=== PATIENT | female | born 1960 | race Caucasian/White ===

== ENCOUNTER 2020-11-26 23:49 | Inpatient (IN) ==
[2020-11-27] MEDS ORDERED: Famotidine IV 10 MG/ML 2 ml VIAL (20 mg) IV SLOW PU ONE (00:57)
[2020-11-27 01:49] LABS: ABS Basophils 0.1 10^3/ul (0-0.2); ABS Eosinophils 0.3 10^3/ul (0-0.6); ABS Lymphocytes 1.4 10^3/ul (1.0-4.8); ABS Monocytes 0.5 10^3/ul (0-0.8); ABS Neutrophils 4.4 10^3/ul (1.5-7.7); Eosinophil % 4.2 %; Hematocrit 32 % (35-47); Hemoglobin 10.5 g/dL (12.0-16.0); Mean Corpuscular HGB Conc 33 g/dL (31-36); Mean Corpuscular Hemoglobin 27 pg (27-31); Mean Corpuscular Volume 80 fL (80-97); Mean Platelet Volume 6.4 fL (7.4-10.4); Platelet Count 323 10^3/uL (150-450); Red Blood Count 3.95 10^6 /uL (3.70-4.87); Red Cell Distribution Width 16 % (10-15); White Blood Count 6.7 10^3/uL (3.5-10.8)
[2020-11-27 01:52] LABS: Activated Partial Thrombo Time 31.2 seconds (26.0-38.0); INR 0.99 (0.82-1.09)
[2020-11-27 02:02] LABS: ALT 11 U/L (7-52); AST 11 U/L (13-39); Albumin 3.6 g/dL (3.2-5.2); Albumin/Globulin Ratio 1.4 (1-3); Alkaline Phosphatase 92 U/L (34-104); Anion Gap 5 mmol/L (2-11); Blood Urea Nitrogen 25 mg/dL (6-24); CO2 Carbon Dioxide 26 mmol/L (22-32); Calcium 8.7 mg/dL (8.6-10.3); Chloride 104 mmol/L (101-111); EGFR African American 132.7 (>60); EGFR Non-African American 109.7 (>60); Globulin 2.6 g/dL (2-4); Glucose 105 mg/dL (70-100); Potassium 3.9 mmol/L (3.5-5.0); Sodium 135 mmol/L (135-145); Total Protein 6.2 g/dL (6.4-8.9)
[2020-11-27 02:14] LABS: Troponin I 0.03 ng/mL (<0.03)
[2020-11-27 03:41] LABS: Vitamin D Total 25(OH) 14.6 ng/mL (20-50)
[2020-11-27 05:50] LABS: Hematocrit 34 % (35-47); Hemoglobin 11.2 g/dL (12.0-16.0); Mean Corpuscular HGB Conc 33 g/dL (31-36); Mean Corpuscular Hemoglobin 27 pg (27-31); Mean Corpuscular Volume 80 fL (80-97); Mean Platelet Volume 6.3 fL (7.4-10.4); Platelet Count 330 10^3/uL (150-450); Red Blood Count 4.21 10^6 /uL (3.70-4.87); Red Cell Distribution Width 16 % (10-15); White Blood Count 6.9 10^3/uL (3.5-10.8)
[2020-11-27] MEDS ORDERED: Enoxaparin 40 MG/0.4 ML SYR SUBCUT SCH (06:00)
[2020-11-27 06:13] LABS: Troponin I 0.03 ng/mL (<0.03)
[2020-11-27 06:28] LABS: Total Iron Binding Capacity 309 mcg/dL (250-450); Transferrin 221 mg/dL (203-362)
[2020-11-27 06:34] LABS: % Iron Saturation 6 % (15-55); Iron < 20 ug/dL (50-212); Unsaturated Iron Binding < 294 ug/dL
[2020-11-27 06:48] LABS: Ferritin 23.6 ng/mL (11-307)
[2020-11-27 06:53] LABS: Vitamin B12 572 pg/mL (180-914)
[2020-11-27] MEDS: Cholecalciferol (VIT D3) 1,000 unit TAB PO SCH (07:41)
[2020-11-27] MEDS ORDERED: fentaNYL 100 mcg/2 ml 50 MCG/ML VIAL ONE (12:59)
[2020-11-27] MEDS ORDERED: Lidocaine 2% PF 5 ML VIAL ONE (12:59)
[2020-11-27] MEDS ORDERED: Midazolam 2 mg/2 ml VIAL 1 mg/ml 2 ml VIAL (2 mg) ONE (12:59)
[2020-11-27] MEDS ORDERED: Propofol 10 MG/ML 20 ML BTL ONE ×2 (12:59→13:25)
[2020-11-27] MEDS ORDERED: Clindamycin 900 MG/D5W BAG 900 MG/50 ML BAG IVPB ONE (16:11)
[2020-11-27] MEDS ORDERED: fentaNYL 100 mcg/2 ml 50 MCG/ML VIAL IV PRN (18:17)
[2020-11-27] MEDS ORDERED: diPHENhydraMINE IV 50 MG/ML 1 ml VIAL (BENADRYL) IV PRN (18:17)
[2020-11-27] MEDS ORDERED: Ondansetron ODT 4 mg TAB 4 MG TAB PO PRN (18:17)
[2020-11-27] MEDS ORDERED: Naloxone 0.4 mg VIAL 0.4 mg/ml 1 ml VIAL IV PRN (18:17)
[2020-11-28] MEDS: Clindamycin 600 MG/D5W BAG IV SCH ×3 (00:21→17:04)
[2020-11-28 05:39] LABS: ABS Basophils 0.1 10^3/ul (0-0.2); ABS Eosinophils 0.3 10^3/ul (0-0.6); ABS Lymphocytes 1.4 10^3/ul (1.0-4.8); ABS Monocytes 0.6 10^3/ul (0-0.8); ABS Neutrophils 4.4 10^3/ul (1.5-7.7); Eosinophil % 4.2 %; Hematocrit 32 % (35-47); Hemoglobin 10.7 g/dL (12.0-16.0); Lymphocyte % 20.5 %; Mean Corpuscular HGB Conc 34 g/dL (31-36); Mean Corpuscular Hemoglobin 27 pg (27-31); Mean Corpuscular Volume 80 fL (80-97); Mean Platelet Volume 6.1 fL (7.4-10.4); Platelet Count 314 10^3/uL (150-450); Red Blood Count 4.02 10^6 /uL (3.70-4.87); Red Cell Distribution Width 16 % (10-15); White Blood Count 6.7 10^3/uL (3.5-10.8)
[2020-11-28 05:57] LABS: Calcium 8.5 mg/dL (8.6-10.3); EGFR African American 102.6 (>60); EGFR Non-African American 84.8 (>60); Potassium 4.1 mmol/L (3.5-5.0)
[2020-11-28] MEDS: Cholecalciferol (VIT D3) 1,000 unit TAB PO SCH (08:03)
[2020-11-28] MEDS ORDERED: Polyethylene Glycol 3350 17 GM PACKET PO PRN (09:20)
[2020-11-28] MEDS ORDERED: Senna TAB 8.6 mg TAB PO PRN (09:20)
[2020-11-28] MEDS ORDERED: Magnesium Hydroxide LIQ 30 ML UDC PO PRN (09:20)
[2020-11-28] MEDS: Enoxaparin 40 MG/0.4 ML SYR SUBCUT SCH (11:11)
[2020-11-28] MEDS: Magnesium Hydroxide LIQ 30 ML UDC PO SCH (21:25)
[2020-11-29] MEDS: Clindamycin 600 MG/D5W BAG IV SCH ×3 (00:22→17:29)
[2020-11-29 04:31] LABS: ABS Basophils 0.1 10^3/ul (0-0.2); ABS Eosinophils 0.2 10^3/ul (0-0.6); ABS Lymphocytes 1.5 10^3/ul (1.0-4.8); ABS Monocytes 0.7 10^3/ul (0-0.8); ABS Neutrophils 3.1 10^3/ul (1.5-7.7); Eosinophil % 4.4 %; Hematocrit 34 % (35-47); Hemoglobin 11.1 g/dL (12.0-16.0); Lymphocyte % 26.7 %; Mean Corpuscular HGB Conc 33 g/dL (31-36); Mean Corpuscular Hemoglobin 26 pg (27-31); Mean Corpuscular Volume 80 fL (80-97); Mean Platelet Volume 6.1 fL (7.4-10.4); Platelet Count 318 10^3/uL (150-450); Red Blood Count 4.22 10^6 /uL (3.70-4.87); Red Cell Distribution Width 16 % (10-15); White Blood Count 5.6 10^3/uL (3.5-10.8)
[2020-11-29] MEDS: Magnesium Hydroxide LIQ 30 ML UDC PO SCH ×2 (08:30→21:28)
[2020-11-29] MEDS: Cholecalciferol (VIT D3) 1,000 unit TAB PO SCH (08:31)
[2020-11-29] MEDS: Enoxaparin 40 MG/0.4 ML SYR SUBCUT SCH (11:57)
[2020-11-30 07:53] VITALS: BP 124/71
[2020-11-30] MEDS: Cholecalciferol (VIT D3) 1,000 unit TAB PO SCH (09:24)
[2020-11-30] MEDS: Magnesium Hydroxide LIQ 30 ML UDC PO SCH (09:25)
== END 2020-11-30 10:56 ==
LOC: ED 23:49 → SSU 11-27 00:35
PROVIDERS: ADMIT Internal Medicine; ATTEND Internal Medicine

== ENCOUNTER 2020-11-30 10:00 | Inpatient (IN) ==
[2020-11-30] MEDS ORDERED: Senna TAB 8.6 mg TAB PO PRN (13:04)
[2020-11-30] MEDS: Enoxaparin 40 MG/0.4 ML SYR SUBCUT SCH (14:07)
[2020-11-30] MEDS ORDERED: D5NS 0.9% 1000 ml BAG 1,000 ML IV SCH (20:00)
[2020-12-01] MEDS: Cholecalciferol (VIT D3) 1,000 unit TAB PO SCH (08:56)
[2020-12-01] MEDS ORDERED: Enoxaparin 40 MG/0.4 ML SYR SUBCUT SCH (12:00)
[2020-12-01] MEDS: Enoxaparin 40 MG/0.4 ML SYR SUBCUT SCH (14:58)
[2020-12-02 07:15] LABS: ABS Eosinophils 0.4 10^3/ul (0-0.6); ABS Lymphocytes 1.5 10^3/ul (1.0-4.8); ABS Monocytes 0.5 10^3/ul (0-0.8); ABS Neutrophils 2.6 10^3/ul (1.5-7.7); Eosinophil % 7.2 %; Hematocrit 34 % (35-47); Hemoglobin 11.1 g/dL (12.0-16.0); Lymphocyte % 30.7 %; Mean Corpuscular HGB Conc 33 g/dL (31-36); Mean Corpuscular Hemoglobin 27 pg (27-31); Mean Corpuscular Volume 80 fL (80-97); Mean Platelet Volume 6.2 fL (7.4-10.4); Nucleated Red Blood Cells % 0.1; Platelet Count 378 10^3/uL (150-450); Red Cell Distribution Width 16 % (10-15)
[2020-12-02 07:31] LABS: Albumin 3.3 g/dL (3.2-5.2); Albumin/Globulin Ratio 1.2 (1-3); Calcium 8.8 mg/dL (8.6-10.3); EGFR African American 144.6 (>60); EGFR Non-African American 119.5 (>60); Globulin 2.8 g/dL (2-4); Potassium 4.3 mmol/L (3.5-5.0); Total Bilirubin 0.4 mg/dL (0.2-1.0); Total Protein 6.1 g/dL (6.4-8.9)
[2020-12-02] MEDS: Cholecalciferol (VIT D3) 1,000 unit TAB PO SCH (09:03)
[2020-12-02] MEDS: Enoxaparin 40 MG/0.4 ML SYR SUBCUT SCH (14:12)
[2020-12-03] MEDS: Cholecalciferol (VIT D3) 1,000 unit TAB PO SCH (08:14)
[2020-12-03] MEDS: Enoxaparin 40 MG/0.4 ML SYR SUBCUT SCH (14:04)
[2020-12-04] MEDS: Cholecalciferol (VIT D3) 1,000 unit TAB PO SCH (10:00)
[2020-12-04] MEDS: Enoxaparin 40 MG/0.4 ML SYR SUBCUT SCH (14:29)
[2020-12-05] MEDS: Cholecalciferol (VIT D3) 1,000 unit TAB PO SCH (09:16)
[2020-12-06 06:38] VITALS: BP 100/62
[2020-12-06] MEDS: Cholecalciferol (VIT D3) 1,000 unit TAB PO SCH (08:33)
[2020-12-07] MEDS ORDERED: Enoxaparin 40 MG/0.4 ML SYR SUBCUT SCH (09:00)
== END 2020-12-06 15:39 | disposition home or self-care (01) ==
LOC: PMRU 10:57
PROVIDERS: ADMIT Physical Medicine & Rehabilitation; ATTEND Physical Medicine & Rehabilitation

== ENCOUNTER 2021-01-01 01:24 | Inpatient (IN) ==
[2021-01-01] MEDS ORDERED: NS 0.9% 1000 ml BAG 1,000 ML IV ONE ×2 (02:45→04:50)
[2021-01-01 03:12] LABS: ABS Lymphocytes 1.2 10^3/ul (1.0-4.8); ABS Monocytes 0.2 10^3/ul (0-0.8); ABS Neutrophils 5.9 10^3/ul (1.5-7.7); Eosinophil % 0.6 %; Hematocrit 19 % (35-47); Hemoglobin 6.2 g/dL (12.0-16.0); Lymphocyte % 16.5 %; Mean Corpuscular HGB Conc 34 g/dL (31-36); Mean Corpuscular Hemoglobin 27 pg (27-31); Mean Corpuscular Volume 81 fL (80-97); Mean Platelet Volume 6.5 fL (7.4-10.4); Nucleated Red Blood Cells % 0.1; Platelet Count 266 10^3/uL (150-450); Red Blood Count 2.29 10^6 /uL (3.70-4.87); Red Cell Distribution Width 17 % (10-15); White Blood Count 7.4 10^3/uL (3.5-10.8)
[2021-01-01 03:31] LABS: Albumin 2.9 g/dL (3.2-5.2); Albumin/Globulin Ratio 1.4 (1-3); C Reactive Protein 7.78 mg/L (<8.01); Calcium 7.9 mg/dL (8.6-10.3); EGFR African American 109.8 (>60); EGFR Non-African American 90.7 (>60); Globulin 2.1 g/dL (2-4); Magnesium 1.7 mg/dL (1.9-2.7); Potassium 3.7 mmol/L (3.5-5.0); Total Bilirubin 0.2 mg/dL (0.2-1.0)
[2021-01-01] MEDS ORDERED: Magnesium Sulfate IV 1GM/100ML 1 GM/100 ML BAG IV ONE (03:51)
[2021-01-01] MEDS ORDERED: Pantoprazole VIAL 40 MG VIAL IV ONE (03:57)
[2021-01-01] MEDS ORDERED: Magnesium Sulfate IV 3 GM in NS 0.9% 100 ml BAG 100 ML IVPB ONE (04:39)
[2021-01-01] MEDS ORDERED: Ondansetron 4 mg VIAL 2 MG/ML 2 ml VIAL IV PRN (04:48)
[2021-01-01] MEDS ORDERED: Lactated Ringers 1000 ml BAG 1,000 ML IV SCH (05:00)
[2021-01-01 06:02] LABS: INR 1.17 (0.82-1.09)
[2021-01-01 06:17] LABS: Urine Appearance Cloudy; Urine Bilirubin Negative (Negative); Urine Blood Negative (Negative); Urine Color Straw; Urine Glucose Negative (Negative); Urine Ketones Negative (Negative); Urine Nitrite Negative (Negative); Urine Protein Negative (Negative); Urine Specific Gravity 1.013 (1.002-1.030); Urine Urobilinogen Negative (Negative)
[2021-01-01 06:22] LABS: Urine Bacteria Absent (Absent); Urine Red Blood Cell Trace(0-2/hpf) (Absent); Urine Squamous Epithelial Cell Present (Absent); Urine White Blood Cell Trace(0-5/hpf) (Absent)
[2021-01-01 09:53] LABS: ABS Basophils 0.1 10^3/ul (0-0.2); ABS Eosinophils 0.1 10^3/ul (0-0.6); ABS Lymphocytes 1.9 10^3/ul (1.0-4.8); ABS Monocytes 0.4 10^3/ul (0-0.8); ABS Neutrophils 2.9 10^3/ul (1.5-7.7); Eosinophil % 2.7 %; Hematocrit 20 % (35-47); Hemoglobin 6.6 g/dL (12.0-16.0); Lymphocyte % 34.8 %; Mean Corpuscular HGB Conc 32 g/dL (31-36); Mean Corpuscular Hemoglobin 28 pg (27-31); Mean Corpuscular Volume 86 fL (80-97); Mean Platelet Volume 7.5 fL (7.4-10.4); Platelet Count 143 10^3/uL (150-450); Red Blood Count 2.37 10^6 /uL (3.70-4.87); Red Cell Distribution Width 17 % (10-15); White Blood Count 5.4 10^3/uL (3.5-10.8)
[2021-01-01 10:16] LABS: Calcium 7.7 mg/dL (8.6-10.3); EGFR African American 170.8 (>60); EGFR Non-African American 141.2 (>60); Potassium 3.8 mmol/L (3.5-5.0)
[2021-01-01] MEDS ORDERED: Furosemide 20 mg/2 ml IV VIAL IV SLOW PU ONE (11:15)
[2021-01-01 15:41] LABS: Hematocrit 26 % (35-47); Hemoglobin 8.8 g/dL (12.0-16.0)
[2021-01-01] MEDS: Pantoprazole VIAL 40 MG VIAL IV SCH (20:02)
[2021-01-02 07:06] LABS: Hematocrit 22 % (35-47); Hemoglobin 7.4 g/dL (12.0-16.0)
[2021-01-02] MEDS: Pantoprazole VIAL 40 MG VIAL IV SCH (08:22)
[2021-01-02] MEDS ORDERED: Midazolam 10 mg/10 ml VIAL 1 mg/ml 10 ml VIAL (10 mg) ONE (09:14)
[2021-01-02] MEDS ORDERED: fentaNYL 100 mcg/2 ml 50 MCG/ML VIAL ONE (09:14)
[2021-01-02] MEDS: Pantoprazole 80 mg in NS BAG 80 MG/250 ML BAG IV SCH ×2 (11:55→22:31)
[2021-01-02 16:43] LABS: Hematocrit 24 % (35-47); Hemoglobin 8.4 g/dL (12.0-16.0)
[2021-01-02 23:13] LABS: Hematocrit 24 % (35-47); Hemoglobin 8.1 g/dL (12.0-16.0)
[2021-01-03 04:52] LABS: Hematocrit 23 % (35-47); Hemoglobin 7.8 g/dL (12.0-16.0)
[2021-01-03] MEDS: Pantoprazole 80 mg in NS BAG 80 MG/250 ML BAG IV SCH ×2 (07:30→20:12)
[2021-01-03 11:09] LABS: Hematocrit 23 % (35-47); Hemoglobin 8.1 g/dL (12.0-16.0)
[2021-01-03 17:40] LABS: Hematocrit 22 % (35-47); Hemoglobin 7.6 g/dL (12.0-16.0)
[2021-01-03 22:58] LABS: Hematocrit 21 % (35-47); Hemoglobin 7.4 g/dL (12.0-16.0)
[2021-01-04] MEDS ORDERED: Pantoprazole 80 mg in NS BAG 80 MG/250 ML BAG IV SCH (05:00)
[2021-01-04] MEDS: Pantoprazole 80 mg in NS BAG 80 MG/250 ML BAG IV SCH ×3 (05:02→16:09)
[2021-01-04 06:18] LABS: Hematocrit 21 % (35-47); Hemoglobin 7.2 g/dL (12.0-16.0)
[2021-01-04 12:18] LABS: Hematocrit 21 % (35-47); Hemoglobin 7.2 g/dL (12.0-16.0)
[2021-01-04 18:33] LABS: Hematocrit 20 % (35-47); Hemoglobin 6.6 g/dL (12.0-16.0)
[2021-01-05] MEDS: Pantoprazole 80 mg in NS BAG 80 MG/250 ML BAG IV SCH (02:54)
[2021-01-05 03:23] LABS: Hematocrit 21 % (35-47); Hemoglobin 7.2 g/dL (12.0-16.0)
[2021-01-05 11:10] VITALS: BP 96/58
[2021-01-05 11:31] LABS: Hematocrit 23 % (35-47); Hemoglobin 7.8 g/dL (12.0-16.0)
== END 2021-01-05 16:20 | disposition home or self-care (01) | DRG 663 ==
LOC: ED 01:24 → SSU 04:49
PROVIDERS: ADMIT Pediatrics; ATTEND Internal Medicine

== ENCOUNTER 2022-05-11 23:36 | Inpatient (IN) ==
[2022-05-12] MEDS ORDERED: Pantoprazole 80 mg in NS BAG 80 MG/250 ML BAG IV ONE (01:40)
[2022-05-12] MEDS ORDERED: Al Hydrox/Mg Hydrox/Simet LIQ 30 ML UDC PO ONE (01:40)
[2022-05-12] MEDS ORDERED: Droperidol 5 MG/2 ML 2 ML VIAL IV ONE (01:40)
[2022-05-12] MEDS ORDERED: Pantoprazole VIAL 40 MG VIAL IV ONE (01:41)
[2022-05-12 01:46] LABS: ABS Basophils 0.1 10^3/ul (0-0.2); ABS Eosinophils 0.1 10^3/ul (0-0.6); ABS Lymphocytes 1.7 10^3/ul (1.0-4.8); ABS Monocytes 0.5 10^3/ul (0-0.8); ABS Neutrophils 5.3 10^3/ul (1.5-7.7); Eosinophil % 1.5 %; Hematocrit 12 % (35-47); Hemoglobin 3.3 g/dL (12.0-16.0); Lymphocyte % 22.5 %; Mean Corpuscular HGB Conc 29 g/dL (31-36); Mean Corpuscular Hemoglobin 15 pg (27-31); Mean Corpuscular Volume 53 fL (80-97); Mean Platelet Volume 8.3 fL (7.4-10.4); Nucleated Red Blood Cells % 0.4; Platelet Count 424 10^3/uL (150-450); Red Cell Distribution Width 22 % (10-15); White Blood Count 7.7 10^3/uL (3.5-10.8)
[2022-05-12 02:09] LABS: Albumin 3.3 g/dL (3.2-5.2); Albumin/Globulin Ratio 1.3 (1-3); Calcium 8.6 mg/dL (8.6-10.3); Globulin 2.5 g/dL (2-4); Total Bilirubin 0.4 mg/dL (0.2-1.0); Total Protein 5.8 g/dL (6.4-8.9); eGFR CKD-EPI 98.3 (>60)
[2022-05-12] MEDS ORDERED: NS 0.9% 1000 ml BAG 1,000 ML IV SCH (02:45)
[2022-05-12 03:28] LABS: Hypochromasia 2+; Microcytosis 2+; Target Cells 1+
[2022-05-12 03:29] LABS: Polychromasia 1+; Tear Drop Cells 1+
[2022-05-12 03:30] LABS: Acanthocytes 2+
[2022-05-12 03:34] LABS: RBC Retic Count 2.16 10^6/uL (3.70-4.87)
[2022-05-12 03:38] LABS: Corrected Retic Count 1.1 % (0.5-1.5); Hematocrit for Retic CNT 12 % (35-47)
[2022-05-12 05:31] LABS: ABS Basophils 0.1 10^3/ul (0-0.2); ABS Eosinophils 0.1 10^3/ul (0-0.6); ABS Monocytes 0.4 10^3/ul (0-0.8); ABS Neutrophils 4.7 10^3/ul (1.5-7.7); Eosinophil % 1.2 %; Hematocrit 16 % (35-47); Hemoglobin 4.9 g/dL (12.0-16.0); Lymphocyte % 27.1 %; Mean Corpuscular HGB Conc 30 g/dL (31-36); Mean Corpuscular Hemoglobin 19 pg (27-31); Mean Corpuscular Volume 61 fL (80-97); Mean Platelet Volume 8.1 fL (7.4-10.4); Nucleated Red Blood Cells % 0.3; Platelet Count 387 10^3/uL (150-450); Red Blood Count 2.67 10^6 /uL (3.70-4.87); Red Cell Distribution Width 32 % (10-15); White Blood Count 7.3 10^3/uL (3.5-10.8)
[2022-05-12 05:49] LABS: Ferritin 2.1 ng/mL (11-307)
[2022-05-12 06:09] LABS: Albumin 3.4 g/dL (3.2-5.2); Albumin/Globulin Ratio 1.4 (1-3); Calcium 8.5 mg/dL (8.6-10.3); Globulin 2.5 g/dL (2-4); Potassium 4.2 mmol/L (3.5-5.0); Total Bilirubin 1.1 mg/dL (0.2-1.0); Total Protein 5.9 g/dL (6.4-8.9); eGFR CKD-EPI 100.2 (>60)
[2022-05-12 09:49] LABS: Hematocrit 20 % (35-47); Hemoglobin 6.5 g/dL (12.0-16.0)
[2022-05-12 13:10] LABS: Hematocrit 24 % (35-47); Hemoglobin 7.4 g/dL (12.0-16.0)
[2022-05-12] MEDS: Iron Sucrose 200 MG in NS 0.9% 100 ml BAG 100 ML IVPB SCH (16:20)
[2022-05-12] MEDS: NS 0.9% 1000 ml BAG 1,000 ML IV SCH (16:21)
[2022-05-12 17:31] LABS: Hematocrit 22 % (35-47); Hemoglobin 6.8 g/dL (12.0-16.0)
[2022-05-12] MEDS: Pantoprazole 80 mg in NS BAG 80 MG/250 ML BAG IV SCH (17:36)
[2022-05-13] MEDS: Pantoprazole 80 mg in NS BAG 80 MG/250 ML BAG IV SCH ×2 (03:53→15:04)
[2022-05-13] MEDS: NS 0.9% 1000 ml BAG 1,000 ML IV SCH (03:53)
[2022-05-13 07:02] LABS: Hematocrit 22 % (35-47); Hemoglobin 6.7 g/dL (12.0-16.0); Mean Corpuscular HGB Conc 31 g/dL (31-36); Mean Corpuscular Hemoglobin 21 pg (27-31); Mean Corpuscular Volume 68 fL (80-97); Platelet Count 343 10^3/uL (150-450); Red Blood Count 3.18 10^6 /uL (3.70-4.87); Red Cell Distribution Width 33 % (10-15); White Blood Count 5.4 10^3/uL (3.5-10.8)
[2022-05-13 07:38] LABS: Calcium 7.8 mg/dL (8.6-10.3); eGFR CKD-EPI 102.7 (>60)
[2022-05-13 10:41] LABS: ABS Basophils 0.1 10^3/ul (0-0.2); ABS Eosinophils 0.1 10^3/ul (0-0.6); ABS Lymphocytes 1.2 10^3/ul (1.0-4.8); ABS Monocytes 0.5 10^3/ul (0-0.8); ABS Neutrophils 3.5 10^3/ul (1.5-7.7); Acanthocytes 1+; Anisocytosis 2+; Eosinophil % 2.7 %; Hypochromasia 1+; Microcytosis 3+; Nucleated Red Blood Cells % 0.6
[2022-05-13] MEDS: Iron Sucrose 200 MG in NS 0.9% 100 ml BAG 100 ML IVPB SCH (16:17)
[2022-05-13 16:46] LABS: Hematocrit 20 % (35-47); Hemoglobin 6.3 g/dL (12.0-16.0)
[2022-05-13 22:48] LABS: Hematocrit 23 % (35-47); Hemoglobin 7.4 g/dL (12.0-16.0)
[2022-05-14] MEDS: Pantoprazole 80 mg in NS BAG 80 MG/250 ML BAG IV SCH ×3 (01:19→14:23)
[2022-05-14 07:07] LABS: Hematocrit 26 % (35-47); Hemoglobin 8.3 g/dL (12.0-16.0); Mean Corpuscular HGB Conc 33 g/dL (31-36); Mean Corpuscular Hemoglobin 23 pg (27-31); Mean Corpuscular Volume 71 fL (80-97); Mean Platelet Volume 8.2 fL (7.4-10.4); Platelet Count 340 10^3/uL (150-450); Red Cell Distribution Width 33 % (10-15); White Blood Count 6.7 10^3/uL (3.5-10.8)
[2022-05-14 07:13] LABS: Calcium 8.3 mg/dL (8.6-10.3); Potassium 4.1 mmol/L (3.5-5.0); eGFR CKD-EPI 103.2 (>60)
[2022-05-14 07:27] LABS: ABS Eosinophils 0.3 10^3/ul (0-0.6); ABS Lymphocytes 1.5 10^3/ul (1.0-4.8); ABS Monocytes 0.6 10^3/ul (0-0.8); ABS Neutrophils 4.3 10^3/ul (1.5-7.7); ABS Nucleated RBC 0.1 10^3/ul; Eosinophil % 4.1 %; Lymphocyte % 21.8 %; Nucleated Red Blood Cells % 1.2
[2022-05-14] MEDS: Iron Sucrose 200 MG in NS 0.9% 100 ml BAG 100 ML IVPB SCH (16:07)
[2022-05-14 18:11] LABS: Hematocrit 27 % (35-47); Hemoglobin 8.3 g/dL (12.0-16.0); Mean Corpuscular HGB Conc 31 g/dL (31-36); Mean Corpuscular Hemoglobin 23 pg (27-31); Mean Corpuscular Volume 74 fL (80-97); Mean Platelet Volume 8.1 fL (7.4-10.4); Platelet Count 392 10^3/uL (150-450); Red Blood Count 3.59 10^6 /uL (3.70-4.87); Red Cell Distribution Width 33 % (10-15); White Blood Count 8.6 10^3/uL (3.5-10.8)
[2022-05-14 19:11] LABS: ABS Basophils 0.1 10^3/ul (0-0.2); ABS Eosinophils 0.4 10^3/ul (0-0.6); ABS Lymphocytes 1.9 10^3/ul (1.0-4.8); ABS Monocytes 0.7 10^3/ul (0-0.8); ABS Neutrophils 5.5 10^3/ul (1.5-7.7); ABS Nucleated RBC 0.1 10^3/ul; Eosinophil % 4.3 %; Lymphocyte % 22.8 %; Nucleated Red Blood Cells % 0.6
[2022-05-15 06:43] LABS: Hematocrit 26 % (35-47); Hemoglobin 8.2 g/dL (12.0-16.0); Mean Corpuscular HGB Conc 32 g/dL (31-36); Mean Corpuscular Hemoglobin 24 pg (27-31); Mean Corpuscular Volume 74 fL (80-97); Mean Platelet Volume 8.2 fL (7.4-10.4); Platelet Count 379 10^3/uL (150-450); Red Blood Count 3.51 10^6 /uL (3.70-4.87); Red Cell Distribution Width 33 % (10-15); White Blood Count 6.4 10^3/uL (3.5-10.8)
[2022-05-15 07:15] LABS: Calcium 8.1 mg/dL (8.6-10.3); Potassium 4.1 mmol/L (3.5-5.0); eGFR CKD-EPI 105.2 (>60)
[2022-05-15 08:56] VITALS: BP 141/70
[2022-05-15] MEDS ORDERED: Iron Sucrose 200 MG in NS 0.9% 100 ml BAG 100 ML IVPB SCH (10:00)
[2022-05-15] MEDS ORDERED: Pneumococcal Vac 23-Polyvalent IM ONE (11:00)
== END 2022-05-15 14:00 | disposition home or self-care (01) | DRG 663 ==
LOC: ED 23:36 → SUATTDRO 05-12 02:37 → EDHOLD 05-12 02:37 → MEDTELE 05-12 12:25
PROVIDERS: ADMIT Internal Medicine; ATTEND Internal Medicine